=== PATIENT | male | born 1985 ===

== ENCOUNTER 2019-05-06 12:07 | Outpatient (CLI) | payer BC ==
[2019-05-06 13:03] LABS: Hematocrit 41.9 % (35.5-45.6); Hemoglobin 14.4 gm/dl (11.8-15.2); Mean Corpuscular HGB Conc 34 % (32-34); Mean Corpuscular Volume 87 fl (84-94); Platelet Count 285 K/mm3 (140-440); Red Blood Count 4.81 M/mm3 (3.65-5.03); Red Cell Distribution Width 13.8 % (13.2-15.2)
[2019-05-06 13:16] LABS: Alanine Aminotransferase 60 units/L (7-56); Albumin 4.1 g/dL (3.9-5); BUN/Creatinine Ratio 14; Blood Urea Nitrogen 13 mg/dL (9-20); Calcium 9.6 mg/dL (8.4-10.2); Chol/HDL Ratio 4.34 %; HDL Cholesterol 43 mg/dL (40-59); Hemolysis Index 3; LDL Cholesterol,Direct 135 mg/dL (50-130)
[2019-05-12 14:21] LABS: Vitamin D, 25-OH, D2 <4 ng/mL
== END 2019-05-06 12:08 | disposition home or self-care (01) ==
LOC: LAB 12:07
PROVIDERS: ATTEND Internal Medicine
DX: Z13.220 Encounter for screening for lipoid disorders (principal); Z13.1 Encounter for screening for diabetes mellitus; Z13.21 Encounter for screening for nutritional disorder
CPT/HCPCS: 36415; 80053; 80061; 82306; 82607; 83036; 84443; 85027